=== PATIENT | female | born 1985 | race Caucasian/White ===

== ENCOUNTER → 2017-09-06 | Outpatient (CLI) | payer MEDICAID | LOC: COL.VAS 08:00 | DX: N26.1 Atrophy of kidney (terminal) (principal) ==

== ENCOUNTER → 2018-03-16 | Outpatient (CLI) | payer MEDICAID | LOC: MC.RAD 10:08 | DX: Z12.31 Encounter for screening mammogram for malignant neoplasm of breast (principal); N64.4 Mastodynia ==